=== PATIENT | female | born 1995 | race Caucasian/White ===

== ENCOUNTER 2018-08-26 05:41 | Day surgery (SDC) | payer OTHER ==
[2018-08-20 11:12] VITALS: BMI 27.1
[2018-08-26] MEDS ORDERED: LIDOCAINE HCL 1%, 10 MG/ML (20ML VIAL) ONE (10:18)
[2018-08-26] MEDS ORDERED: BUPIVACAINE HCL/PF 0.5% (5MG/ML) 10 ML VIAL ONE (10:18)
--- NOTE | 2018-08-26 10:43 | HP ---
Satellite H - Chief Complaint Chief Complaint: left wrist mass - Past Medical History Allergies/Adverse Reactions: Allergies Allergy/AdvReac Type Severity Reaction Status Date / Time No Known Allergies Allergy Verified 08/20/18 11:18 ...LMP: 07/30/18 ...LMP Comment: regular(mostly) - Current Medications Current Medications: Home Medications Medication Instructions Recorded Duexis 800-26.6 mg Tablet 1 tab PO PRN PRN 08/20/18 Ozempic 1 mg PO WEEKLY 08/20/18 Hydrocodone/Acetaminophen 1 each PO Q6H #20 tablet MDD 4 08/26/18 [Hydrocodone-Acetamin 5-325 mg] Satellite Physical Exam - Physical Examination General Appearance: Well Nourished, Well Developed, Alert & Oriented x3 ENT: Clear Lung: Normal air movement Heart: Regular rate & rhythm Extremities: Other (left wrist- +mass dorsal wrist, nvi) Neurological: Intact, Alert, Oriented Satellite Impression/Plan - Impression/Plan Impression: left wrist dorsal ganglion cyst Operative Procedure: left wrist ganglion cyst excision Date to be Performed: 08/26/18
[2018-08-26] MEDS ORDERED: MIDAZOLAM HCL 2 MG/2 ML SINGLE DOSE VIAL ONE (12:01)
[2018-08-26] MEDS ORDERED: PROPOFOL 20 ML ONE ×2 (12:01→12:19)
[2018-08-26] MEDS ORDERED: ceFAZolin SODIUM 1 GM VIAL IVPB ONE (12:10)
[2018-08-26] MEDS ORDERED: LIDOCAINE HCL 1%, 10 MG/ML (50 mL VIAL) IJ ONE ×2 (12:13)
[2018-08-26] MEDS ORDERED: BUPIVACAINE HCL/PF (5 MG/ML) 30 ML VIAL IJ ONE ×2 (12:13)
[2018-08-26] MEDS ORDERED: DEXAMETHASONE SOD PHOSPHATE 4 MG/1 ML VIAL ONE (12:17)
[2018-08-26] MEDS ORDERED: ONDANSETRON 4 MG/2 ML VIAL IVPUSH PRN (12:20)
[2018-08-26] MEDS ORDERED: oxyCODONE HCL 5 MG TABLET PO PRN (12:20)
[2018-08-26] MEDS ORDERED: LACTATED RINGERS SOLUTION 1,000 ML IV SCH (12:30)
--- NOTE | 2018-08-26 12:45 | OP ---
Operative Note - Note: Operative Date: 08/26/18 Pre-Operative Diagnosis: left wrist mass Operation: excision mass left wrist Post-Operative Diagnosis: Same as Pre-op Surgeon: Damian Lugo Anesthesiologist/UNDERCOVER AGENT: Sally Talavera Anesthesia: Local, MAC Specimens Removed: mass left wrist Estimated Blood Loss (mls): 0 Drains, Volume Out (mls): 0 Blood Volume Replaced (mls): 0 Fluid Volume Replaced (mls): 700 Operative Report Dictated: Yes
[2018-08-26 13:06] VITALS: PULSE 94
--- NOTE | 2018-08-26 15:31 | OP ---
DATE OF OPERATION: 08/26/2018 PREOPERATIVE DIAGNOSIS: Mass of the left wrist. POSTOPERATIVE DIAGNOSIS: Mass of the left wrist. PROCEDURE: Excision of mass, left wrist. SURGEON: Damian Lugo M.D. LEGAL RECORDS MANAGER: , THREAD LASTER ANESTHESIA: MAC with local injection of 12 mL of 0.5% Marcaine and 1% lidocaine mix. DRAINS: None. COMPLICATIONS: None. SPECIMEN: Mass of the left wrist. BLOOD LOSS: None. BLOOD GIVEN: None. FLUID REPLACEMENT: 700 mL. INDICATIONS: The patient is a 23-year-old female with the preoperative diagnosis of a mass in the dorsal aspect of the left wrist. After understanding the potential risks, complications, alternatives and benefits of surgery versus nonsurgical treatment, the patient elected to undergo this procedure. The patient understands that there is a chance of it being a more concerning diagnosis, she may need additional surgery, there is a chance of recurrence. DESCRIPTION OF PROCEDURE: The patient was brought to the operating room, peripheral IV placed and IV sedation given. IV Ancef 2 g was given. MAC anesthesia was induced. The entire case was done under 3-point loupe magnification. Because of the oblong shape of the mass, I decided to make a longitudinal incision directly up the dorsal aspect of the left wrist over the mass. The incision was marked out with a marking pen, and 10 mL 0.5% Marcaine and 1% lidocaine mix was injected in and around the surgical incision. The area was then elevated, exsanguinated with an Esmarch bandage, and the tourniquet inflated to 250 mmHg. A number 15 scalpel blade was utilized to cut down through the skin. Subcutaneous hemostasis was achieved with the bipolar cautery. Dissection was done with Littler scissors. First it was apparent that there was a relatively homogeneous fat collection directly above the mass. It looks like it could be reactive in nature. There was some fibrosis within it. It did not look like a well-encapsulated lipoma but did not have any obviously concerning characteristics. This was excised. This was dorsal to the extensor retinaculum. Once this was done, I could see there was an area where the fat and a portion of the mass had come out through the dorsal retinaculum. This window was opened wider, revealing a relatively large mass, approximately 2 cm x 2 cm x 2 cm. An Allis clamp was placed on the top of it for longitudinal traction. I did careful dissection with Littler scissors and a number 15 scalpel blade until we found the stalk going down to the dorsal aspect of the wrist crease to the carpal bones. It was decapitated at its base and passed off the field. The mass itself was a combination of ganglion cyst, fat, fibrous tissue and inflammatory tenosynovium. As mentioned, it was relatively big and not completely homogeneous. The area was copiously irrigated and washed out. I cauterized at its base. The area was irrigated and washed out again. I did not see or feel any other abnormal tissue, but again, a relatively large amount of tissue was taken out of this area of the body. Closure was done with 4-0 undyed Vicryl in the deep dermal layer and final skin approximation was done with a running subcuticular 4-0 Biosyn stitch. The area was then washed and dried, covered with Steri-Strips, 4 x 4 fluffs between the fingers, Webril and Coban. Total tourniquet time was 28 minutes. There were no complications during the case. The patient tolerated the procedure quite well and was brought to the ambulatory recovery room in stable condition. Radhika [id number]
[2018-08-26 15:52] VITALS: BP 126/68; TEMP 97.9
--- NOTE | 2018-08-28 18:48 | PATH ---
Surgical Pathology Report Patient Name: [facility]. Rec. #: [id number] /Age/Gender: 1995 (Age: 23) / F Account: [id number] Location: [facility] SURGICAL Taken: 08/26/2018 Received: 08/27/2018 Reported: 08/28/2018 Physicians: Damian Lugo M.D. Specimen(s) Received LEFT DORSAL WRIST MASS Clinical History Left dorsal wrist ganglion cyst Final Diagnosis DORSAL WRIST MASS, LEFT, EXCISION: GANGLION CYST. Electronically Signed Juhi Quintana M.D. Gross Description Received in formalin labeled "left wrist mass," is a 3.3 x 2.3 x 1.0 cm aggregate of bustamante-yellow, irregular portions of soft tissue, possibly consistent with a ganglion cyst. Sectioning reveals clear mucinous material. Curriculum Director sections are submitted in one cassette. /08/27/2018 saudi/08/27/2018
== END 2018-08-26 13:40 | disposition home or self-care (01) ==
LOC: JASU-SURG 05:41
PROVIDERS: ATTEND Orthopaedic Surgery
PROC: 0LB60ZZ Excision of Left Lower Arm and Wrist Tendon, Open Approach (ICD-10-PCS; principal; 2018-08-26 11:30)
DX: M67.432 Ganglion, left wrist (principal)
CPT/HCPCS: 84703; 88304-TC